=== PATIENT | male | born 1960 | race Two or more races ===

== ENCOUNTER 2018-12-17 14:45 | Inpatient (IN) | payer MEDICARE, OTHER ==
[~2018-12-17] VITALS: Ht 167.6 cm; Wt 127.0 kg
--- NOTE | 2018-12-17 14:58 | Emergency Room Report ---
History of Present Illness General Chief Complaint: Edema Source: Patient, EMS Present Illness HPI Patient is a 58-year-old male presented after increased difficulty with lower extremity swelling. Patient had been noted to have increased swelling to both legs. He had recently been started on diuretics. Patient was noted to have swelling up to his thighs. Patient denies any prior history of renal disease or heart failure. He reports having taking water pill this morning. Patient was brought in by [facility].Reports having long-standing swelling which has worsened.Patient denies any fever. Allergies: Coded Allergies: No Known Allergies (Unverified , 12/17/18) Patient History Past Medical History: see triage record Reviewed Nursing Documentation: PMH: Agreed; PSxH: Agreed Nursing Documentation-PMH Past Medical History: No History, Except For Hx Cardiac Problems: No - OSTEOARTHRITIS, OBESITY Review of Systems All Other Systems: negative except mentioned in HPI Physical Exam Vital Signs Date Time Temp Pulse Resp B/P (MAP) Pulse Ox O2 Delivery O2 Flow Rate FiO2 12/17/18 14:42 97.5 94 22 132/70 95 Room Air Sp02 EP Interpretation: reviewed, normal General Appearance: normal inspection, well appearing, no apparent distress, alert, obese Head: atraumatic ENT: normal ENT inspection, hearing grossly normal, normal voice Neck: normal inspection, full range of motion, supple, no bony tend Respiratory: normal inspection, lungs clear, no respiratory distress, no retraction, wheezing Cardiovascular #1: regular rate, rhythm, edema - 4+ Gastrointestinal: normal inspection, normal bowel sounds, non tender, soft, no guarding, no hernia Genitourinary: no CVA tenderness Musculoskeletal: normal inspection, back normal, normal range of motion Neurologic: normal inspection, alert, oriented x3, responsive, speech normal Psychiatric: normal inspection, judgement/insight normal, mood/affect normal Skin: normal inspection, normal color, no rash Medical Decision Making Diagnostic Impression: Primary Impression: Bilateral edema of lower extremity ER Course Patient presented for lower extremity swelling. Differential diagnosis includes is not limited to allergic reaction, deep venous thrombosis, congestive heart failure, cirrhosis among others. Because of complexity of patient's case laboratory testing and imaging studies were ordered. Patient is noted to have lower extremity edema. He was noted to have very prominent edema. He does not appear to have any pulmonary symptoms. EKG interpreted by me showed normal sinus rhythm without acute ST or T wave changes. Bilateral lower extremity ultrasound showed no evidence of deep venous thrombosis.Dr. Denilson Rivera was contacted for inpatient management due to primary care physician. Labs Test 12/17/18 15:15 White Blood Count 7.4 K/UL (4.8-10.8) Red Blood Count 4.51 M/UL (4.70-6.10) Hemoglobin 11.5 G/DL (14.2-18.0) Hematocrit 35.7 % (42.0-52.0) Mean Corpuscular Volume 79 FL (80-99) Mean Corpuscular Hemoglobin 25.6 PG (27.0-31.0) Mean Corpuscular Hemoglobin Concent 32.3 G/DL (32.0-36.0) Red Cell Distribution Width 15.9 % (11.6-14.8) Platelet Count 265 K/UL (150-450) Mean Platelet Volume 7.2 FL (6.5-10.1) Neutrophils (%) (Auto) 61.6 % (45.0-75.0) Lymphocytes (%) (Auto) 23.1 % (20.0-45.0) Monocytes (%) (Auto) 11.5 % (1.0-10.0) Eosinophils (%) (Auto) 3.1 % (0.0-3.0) Basophils (%) (Auto) 0.7 % (0.0-2.0) Prothrombin Time 10.9 SEC (9.30-11.50) Prothromb Time International Ratio 1.0 (0.9-1.1) Activated Partial Thromboplast Time 29 SEC (23-33) D-Dimer 0.80 mg/L FEU (0.00-0.49) Urine Color Pale yellow Urine Appearance Clear Urine pH 8 (4.5-8.0) Urine Specific [place] 1.010 (1.005-1.035) Urine Protein Negative (NEGATIVE) Urine Glucose (UA) Negative (NEGATIVE) Urine Ketones Negative (NEGATIVE) Urine Blood 1+ (NEGATIVE) Urine Nitrite Negative (NEGATIVE) Urine Bilirubin Negative (NEGATIVE) Urine Urobilinogen Normal MG/DL (0.0-1.0) Urine Leukocyte Esterase Negative (NEGATIVE) Urine RBC 2-4 /HPF (0 - 0) Urine WBC 0-2 /HPF (0 - 0) Urine Squamous Epithelial Cells None /LPF (NONE/OCC) Urine Bacteria Few /HPF (NONE) Sodium Level 142 MMOL/L (136-145) Potassium Level 3.7 MMOL/L (3.5-5.1) Chloride Level 106 MMOL/L (98-107) Carbon Dioxide Level 28 MMOL/L (21-32) Anion Gap 8 mmol/L (5-15) Blood Urea Nitrogen 17 mg/dL (7-18) Creatinine 0.7 MG/DL (0.55-1.30) Estimat Glomerular Filtration Rate > 60 mL/min (>60) Glucose Level 111 MG/DL (74-106) Calcium Level 9.1 MG/DL (8.5-10.1) Total Bilirubin 1.1 MG/DL (0.2-1.0) Direct Bilirubin 0.2 MG/DL (0.0-0.3) Aspartate Amino Transf (AST/SGOT) 22 U/L (15-37) Alanine Aminotransferase (ALT/SGPT) 42 U/L (12-78) Alkaline Phosphatase 63 U/L (46-116) Total Creatine Kinase 307 U/L (26-308) C-Reactive Protein, Quantitative 0.5 mg/dL (0.00-0.90) Pro-B-Type Natriuretic Peptide 46 pg/mL (0-125) Total Protein 7.5 G/DL (6.4-8.2) Albumin 3.6 G/DL (3.4-5.0) Globulin 3.9 g/dL Albumin/Globulin Ratio 0.9 (1.0-2.7) Lipase 130 U/L (73-393) Last Vital Signs Date Time Temp Pulse Resp B/P (MAP) Pulse Ox O2 Delivery O2 Flow Rate FiO2 12/17/18 14:42 97.5 94 22 132/70 95 Room Air Status: improved Disposition: ADMITTED INPATIENT Condition: Stable Galileo Strong MD Dec 17, 2018 14:58
--- NOTE | 2018-12-17 15:19 | NUR ---
ED Nurse Note: Pt BIBDom from [facility] due to bilateral lower extremities edema x 2 days. Pt states that he has had this x 1 year but it has gotten worse the past couple days. A + O x4. Ambulatory. Skin warm to touch. Pt denies pain. Noted to have bilateral +2 pitting edema on the lower extremities.
[2018-12-17 15:22] VITALS: BP 115/55
[2018-12-17 15:25] LABS: APPEARANCE,URINE CLEAR; BILIRUBIN, URINE NEGATIVE (NEGATIVE); COLOR,URINE PALE YELLOW; GLUCOSE, URINE (UA) NEGATIVE (NEGATIVE); KETONES,URINE NEGATIVE (NEGATIVE); LEUKOCYTE ESTERASE ,URINE NEGATIVE (NEGATIVE); NITRITE,URINE NEGATIVE (NEGATIVE); PH,URINE 8 (4.5-8.0); PROTEIN,URINE NEGATIVE (NEGATIVE); UROBILINOGEN,URINE NORMAL MG/DL (0.0-1.0)
[2018-12-17 15:32] LABS: BASOPHILS % (AUTO) 0.7 % (0.0-2.0); EOSINOPHILS % (AUTO) 3.1 % (0.0-3.0); HEMATOCRIT 35.7 % (42.0-52.0); HEMOGLOBIN 11.5 G/DL (14.2-18.0); LYMPHOCYTES % (AUTO) 23.1 % (20.0-45.0); MEAN CORPUSCULAR VOLUME 79 FL (80-99); MONOCYTES % (AUTO) 11.5 % (1.0-10.0); NEUTROPHILS % (AUTO) 61.6 % (45.0-75.0); PLATELET COUNT 265 K/UL (150-450); RED BLOOD COUNT 4.51 M/UL (4.70-6.10); RED CELL DISTRIBUTION WIDTH 15.9 % (11.6-14.8); WHITE BLOOD COUNT 7.4 K/UL (4.8-10.8)
[2018-12-17 15:38] LABS: ANION GAP 8 mmol/L (5-15); BLOOD UREA NITROGEN 17 mg/dL (7-18); CALCIUM 9.1 MG/DL (8.5-10.1); CARBON DIOXIDE 28 MMOL/L (21-32); CHLORIDE 106 MMOL/L (98-107); CREATININE 0.7 MG/DL (0.55-1.30); POTASSIUM 3.7 MMOL/L (3.5-5.1); SODIUM 142 MMOL/L (136-145)
[2018-12-17 15:49] LABS: ALANINE AMINOTRANSFERASE 42 U/L (12-78); ALBUMIN 3.6 G/DL (3.4-5.0); ALBUMIN/GLOBULIN RATIO 0.9 (1.0-2.7); ALKALINE PHOSPHATASE 63 U/L (46-116); ASPARTATE AMINO TRANSFERASE 22 U/L (15-37); BILIRUBIN,TOTAL 1.1 MG/DL (0.2-1.0); CREATINE KINASE 307 U/L (26-308)
[2018-12-17 15:55] LABS: BILIRUBIN,DIRECT 0.2 MG/DL (0.0-0.3)
[2018-12-17 16:48] VITALS: BP 129/64
--- NOTE | 2018-12-17 18:29 | NUR ---
ED Nurse Note: US AT THE BEDSIDE.
--- NOTE | 2018-12-17 19:17 | NUR ---
HAND-OFF: Report given to SARAH Sheppard.
--- NOTE | 2018-12-17 19:18 | NUR ---
ED Nurse Note: Received report from Leilani/SARAH. Pt is A/O X 4. Waitng for bed to transfer.
[2018-12-17] MEDS ORDERED: OXYBUTYNIN CHLO15 MG PO (19:56)
[2018-12-17] MEDS ORDERED: MELOXICAM15 MG PO (19:56)
[2018-12-17] MEDS ORDERED: AMLODIPINE BESY10 MG ORAL (19:56)
[2018-12-17] MEDS ORDERED: ATORVASTATIN CA40 MG ORAL (19:56)
[2018-12-17] MEDS ORDERED: CARVEDILOL6.25 MG ORAL (19:56)
[2018-12-17] MEDS ORDERED: GABAPENTIN300 MG ORAL (19:56)
[2018-12-17] MEDS ORDERED: BENAZEPRIL HCL10 MG ORAL (19:56)
[2018-12-17] MEDS ORDERED: ASPIRIN81 MG ORAL (19:56)
[2018-12-17 20:15] VITALS: BP 132/70
--- NOTE | 2018-12-17 20:15 | NUR ---
NURSE NOTES: Received pt from [facility] via [facility], pt is AOX4, c/o bilateral lower extremity pain, pt is incontinent or urine kept pt clean and dry. IV R AC #20 patent and intact. Will admit pt to floor. No distress noted. Bed in lowest position and locked, side rails up x 2, call light within reach. Will continue to monitor.
--- NOTE | 2018-12-17 20:15 | NUR ---
TRANSFER TO FLOOR: Patient transferred to M/S 320 as ordered. Report given to Lukas/SARAH. Belongings sent with Pt , and rechecked with RN. Pt has smith in safety box. Endorsed to RN.
--- NOTE | 2018-12-17 20:45 | NUR ---
NURSE NOTES: Paged Dr. Echeverria for admission orders. Awaiting for call back.
--- NOTE | 2018-12-17 21:10 | NUR ---
NURSE NOTES: Dr. Echeverria called back, admission orders obtained and carried out.
[2018-12-17] MEDS: Hydromorphone 0.5mg/0.5ml inj IVP PRN (22:13)
[2018-12-18] VITALS: BP 132/89
[2018-12-18 04:00] VITALS: BP 121/82
[2018-12-18 06:30] LABS: BASOPHILS % (AUTO) 0.8 % (0.0-2.0); EOSINOPHILS % (AUTO) 3.4 % (0.0-3.0); HEMATOCRIT 33.2 % (42.0-52.0); HEMOGLOBIN 10.7 G/DL (14.2-18.0); LYMPHOCYTES % (AUTO) 33.8 % (20.0-45.0); MEAN CORPUSCULAR VOLUME 79 FL (80-99); MONOCYTES % (AUTO) 10.7 % (1.0-10.0); NEUTROPHILS % (AUTO) 51.3 % (45.0-75.0); PLATELET COUNT 247 K/UL (150-450); RED BLOOD COUNT 4.19 M/UL (4.70-6.10); RED CELL DISTRIBUTION WIDTH 16.2 % (11.6-14.8); WHITE BLOOD COUNT 6.3 K/UL (4.8-10.8)
[2018-12-18 07:07] LABS: ANION GAP 7 mmol/L (5-15); BLOOD UREA NITROGEN 16 mg/dL (7-18); CALCIUM 8.9 MG/DL (8.5-10.1); CARBON DIOXIDE 28 MMOL/L (21-32); CHLORIDE 106 MMOL/L (98-107); CREATININE 0.8 MG/DL (0.55-1.30); POTASSIUM 3.8 MMOL/L (3.5-5.1); SODIUM 141 MMOL/L (136-145)
--- NOTE | 2018-12-18 07:28 | NUR ---
HAND-OFF: Report given to SARAH Min. Pt in stable condition.
--- NOTE | 2018-12-18 07:30 | NUR ---
NURSE NOTES: Patient is in bed awake and able to verbalize needs. Stable with no s/s acute distress. Patient is in good spirits. Complains of 8/10 pain in bilateral lower extremities, will administer medication as ordered. Edema noted on bilateral lower extremities, skin clean, dry, and intact. Patient comfortable in bed with call light within reach. Will continue to monitor.
[2018-12-18] MEDS: Hydromorphone 0.5mg/0.5ml inj IVP PRN ×4 (07:47→22:41)
[2018-12-18 08:00] VITALS: BP 117/67
--- NOTE | 2018-12-18 08:46 | Diagnostic Imaging Report ---
Indication: Bilateral leg pain Technique: Grayscale and duplex images of the bilateral lower extremity deep veins Comparison: none Findings: Grayscale and duplex images demonstrate no evidence of intraluminal thrombus. Normal phasic Doppler waveforms demonstrating normal augmentation response, no evidence of valvular insufficiency. Normal compressibility of all deep veins. Patent downstream greater saphenous veins bilaterally. Impression: Negative for lower extremity deep venous thrombosis bilaterally
[2018-12-18] MEDS ORDERED: Oxybutynin 5mg tab ORAL SCH (09:00)
--- NOTE | 2018-12-18 09:00 | NUR ---
NURSE NOTES: Paged Dr. Echeverria regarding DVT prophylaxis order, awaiting response.
[2018-12-18] MEDS: Meloxicam 15 MG TAB ORAL SCH (09:21)
[2018-12-18] MEDS: Oxybutynin 5mg tab ORAL SCH ×3 (09:22→17:47)
[2018-12-18] MEDS: Benazepril 10mg tab ORAL SCH (09:22)
[2018-12-18] MEDS: Aspirin Baby 81mg ORAL SCH (09:22)
[2018-12-18 12:00] VITALS: BP 136/69
--- NOTE | 2018-12-18 14:36 | NUR ---
CASE MANAGEMENT:REVIEW 58 YR OLD MALE BIBA FROM [facility] IN [facility] CC: EDEMA X2 DAYS SI: BLE EDEMA 97.6 94 22 132/70 95% ON RA GLUCOSE+111 IS: IV LASIX : TO MED/SURG UNIT IS: IV DILAUDID Q4HRS PRN DITROPAN PO TID MOBIC PO QD NEURONTIN PO QD LOTENSIN PO QD ASA PO QD NORVASC PO QD Addendum: 12/18/18 at 1453 by NEHAL DO LVN LVN PLAN: 2DECHO VENOUS DUPLEX
--- NOTE | 2018-12-18 15:10 | NUR ---
DISCHARGE PLANNING PRIVATE CLIENT ADVISOR DISCUSSED DISCHARGE PLAN WITH DR NEWTON POSSIBLE DISCHARGE TODAY PATIENT IS FROM [facility]...DISCUSSED WITH CHARGE NURSECRISTHIAN
--- NOTE | 2018-12-18 15:44 | Cardiology Report ---
APPROVED REPORT EXAM: Two-dimensional and M-mode echocardiogram with Doppler and color Doppler. INDICATION ESSENTIAL HYPERTENSION M-Mode DIMENSIONS IVSd1.2 (0.7-1.1cm)Left Atrium (MM)4.1 (1.6-4.0cm) LVDd4.1 (3.5-5.6cm)Aortic Root3.1 (2.0-3.7cm) PWd1.2 (0.7-1.1cm)Aortic Cusp Exc.1.7 (1.5-2.0cm) IVSs1.8 cm LVDs2.7 (2.5-4.0cm) PWs1.4 cm Normal left ventricular chamber size, systolic function and wall motion. Left ventricular ejection fraction estimated to be 55-60%. No evidence of left ventricular hypertrophy. No evidence of pericardial effusion. Mild left atrial enlargement . Right cardiac chamber sizes are within normal limits. Mild aortic valve sclerosis with adequate cusp excursion. Mildly thickened mitral valve leaflets with normal excursion. Mild mitral annulus and aortic root calcification. Pulmonic valve not well visualized. IVC at normal size with physiologic collapse . A color flow and spectral Doppler study was performed and revealed: No aortic regurgitation. Normal left ventricular diastolic function . Trace mitral regurgitation. Trace tricuspid regurgitation. Tricuspid systolic velocities suggests peak right ventricular systolic pressure of 21 mmHg.
--- NOTE | 2018-12-18 15:53 | Cardiology Report ---
APPROVED REPORT EKG Measurement Heart [id number] Normal sinus rhythm Normal ECG
[2018-12-18 16:00] VITALS: BP 122/63
--- NOTE | 2018-12-18 19:03 | History and Physical ---
History of Present Illness General Date patient seen: Dec 18, 2018 Reason for Hospitalization: Edema Present Illness HPI 58 y/o AA male admitted from [facility] after several days of increasing edema up to thighs. Pt. c/o pain, never had this before. On w/u echo has nl ef, us of legs negative for dvt. pt. noted to have anemia, UA no proteinuria. c/o weakness, pain, and gait d/o resulting from the swelling. Allergies: Coded Allergies: No Known Allergies (Unverified , 12/17/18) Medication History Scheduled Amlodipine Besylate* (Amlodipine Besylate*), 10 MG ORAL DAILY, (Reported) Aspirin* (Aspirin*), 81 MG ORAL DAILY, (Reported) Atorvastatin Calcium* (Atorvastatin Calcium*), 40 MG ORAL DAILY, (Reported) Benazepril Hcl* (Benazepril Hcl*), 10 MG ORAL DAILY, (Reported) Carvedilol* (Carvedilol*), 6.25 MG ORAL EVERY 12 HOURS, (Reported) Gabapentin* (Gabapentin*), 300 MG ORAL DAILY, (Reported) Meloxicam* (Meloxicam*), 15 MG PO DAILY, (Reported) Oxybutynin Chloride (Oxybutynin Chloride Er), 15 MG PO DAILY, (Reported) Patient History History Provided By: Patient Healthcare decision maker Resuscitation status Full Code Advanced Directive on File No Review of Systems Constitutional: Reports: malaise, weakness Eye: Denies: no symptoms, see HPI, eye pain, blurred vision, tearing, double vision, nose pain, nose congestion, acuity changes, discharge, other ENT: Denies: no symptoms, see HPI, ear pain, ear discharge, nose pain, nose congestion, throat pain, throat swelling, mouth pain, hearing loss, nasal discharge, other Respiratory: Denies: no symptoms, see HPI, cough, orthopnea, shortness of breath, stridor, wheezing, CHAUDHARI, sputum, other Cardiovascular: Denies: no symptoms, see HPI, chest pain, edema, palpitations, syncope, PND, other Gastrointestinal: Denies: no symptoms, see HPI, abdominal pain, constipation, diarrhea, nausea, vomiting, melena, hematemesis, other Genitourinary: Reports: frequency, incontinence; Denies: no symptoms, see HPI, discharge, dysuria, hematuria, pain, retention, urgency, vag bleed/dc, other Musculoskeletal: Reports: joint pain Skin: Denies: no symptoms, see HPI, rash, change in color, change in hair/nails , dryness, lesions, other Psychiatric: Denies: no symptoms, see HPI, prior hx, anxiety, depressed feelings, emotional problems, SI, HI, hallucinations, other Neurological: Denies: no symptoms, see HPI, headache, numbness, paresthesia, seizure, tingling, tremors, focal weakness, syncope, dizziness, other Endocrine: Denies: no symptoms, see HPI, excessive sweating, flushing, intolerance to temperature, increased thirst, increased urine, unexplained weight loss, other Hematologic/Lymphatic: Denies: no symptoms, see HPI, anemia, blood clots, easy bleeding, easy bruising, swollen glands, diathesis, other Physical Exam General Appearance: WD/WN, no apparent distress, obese HEENT: normocephalic, atraumatic, anicteric, mucous membranes moist, PERRL Neck: non-tender, normal alignment, supple Respiratory/Chest: chest wall non-tender, lungs clear Cardiovascular/Chest: normal peripheral pulses Abdomen: non tender Genitourinary/Rectal: normal genital exam Extremities: normal range of motion, normal capillary refill, non-pitting Skin Exam: warm/dry 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, no motor/sensory deficits, alert, oriented x 3, no Babinski Last 24 Hour Vital Signs Date Time Temp Pulse Resp B/P (MAP) Pulse Ox O2 Delivery O2 Flow Rate FiO2 12/18/18 16:00 98.3 80 18 122/63 (82) 96 12/18/18 12:00 98.6 85 18 136/69 (91) 95 12/18/18 09:22 117/67 12/18/18 09:22 85 117/67 12/18/18 09:00 Room Air 12/18/18 08:00 98.3 85 18 117/67 (84) 96 12/18/18 04:00 97.9 63 17 121/82 (95) 99 12/18/18 00:00 99.0 82 18 132/89 (103) 98 12/17/18 20:21 Room Air 12/17/18 20:15 97.8 91 20 132/70 (90) 97 12/17/18 20:15 97.8 87 20 131/72 97 Room Air 100 Intake and Output 12/17/18 12/18/18 19:00 07:00 Intake Total 340 ml Output Total 900 ml Balance -560 ml Intake Oral 340 ml Output Urine Total 900 ml Laboratory Tests Test 12/18/18 05:00 White Blood Count 6.3 K/UL (4.8-10.8) Red Blood Count 4.19 M/UL (4.70-6.10) L Hemoglobin 10.7 G/DL (14.2-18.0) L Hematocrit 33.2 % (42.0-52.0) L Mean Corpuscular Volume 79 FL (80-99) L Mean Corpuscular Hemoglobin 25.5 PG (27.0-31.0) L Mean Corpuscular Hemoglobin Concent 32.1 G/DL (32.0-36.0) Red Cell Distribution Width 16.2 % (11.6-14.8) H Platelet Count 247 K/UL (150-450) Mean Platelet Volume 6.5 FL (6.5-10.1) Neutrophils (%) (Auto) 51.3 % (45.0-75.0) Lymphocytes (%) (Auto) 33.8 % (20.0-45.0) Monocytes (%) (Auto) 10.7 % (1.0-10.0) H Eosinophils (%) (Auto) 3.4 % (0.0-3.0) H Basophils (%) (Auto) 0.8 % (0.0-2.0) Sodium Level 141 MMOL/L (136-145) Potassium Level 3.8 MMOL/L (3.5-5.1) Chloride Level 106 MMOL/L (98-107) Carbon Dioxide Level 28 MMOL/L (21-32) Anion Gap 7 mmol/L (5-15) Blood Urea Nitrogen 16 mg/dL (7-18) Creatinine 0.8 MG/DL (0.55-1.30) Estimat Glomerular Filtration Rate > 60 mL/min (>60) Glucose Level 120 MG/DL (74-106) H Calcium Level 8.9 MG/DL (8.5-10.1) Thyroid Stimulating Hormone (TSH) 1.470 uiU/mL (0.358-3.740) Height (Feet): 5 Height (Inches): 6.00 Weight (Pounds): 280 Medications Current Medications Medications (Trade) Dose Ordered Sig/Faheem Route PRN Reason Start Time Stop Time Status Last Admin Dose Admin Amlodipine Besylate (Norvasc) 10 mg DAILY ORAL 12/18/18 09:00 01/17/19 08:59 12/18/18 09:22 Aspirin (ASA) 81 mg DAILY ORAL 12/18/18 09:00 01/17/19 08:59 12/18/18 09:22 Atorvastatin Calcium (Lipitor) 40 mg BEDTIME ORAL 12/18/18 21:00 01/17/19 20:59 Benazepril HCl (Lotensin) 10 mg DAILY ORAL 12/18/18 09:00 01/17/19 08:59 12/18/18 09:22 Gabapentin (Neurontin) 300 mg DAILY ORAL 12/18/18 09:00 01/17/19 08:59 12/18/18 09:22 Hydromorphone HCl (Dilaudid) 0.5 mg Q4H PRN IVP For Pain 12/17/18 21:15 12/24/18 21:14 12/18/18 17:51 Meloxicam (Mobic) 15 mg DAILY ORAL 12/18/18 09:00 01/17/19 08:59 12/18/18 09:21 Oxybutynin Chloride (Ditropan) 5 mg TID ORAL 12/18/18 09:00 01/17/19 08:59 12/18/18 17:47 Assessment/Plan Problem List: (1) Osteoarthritis Assessment & Plan: - on cpx2 inhibitor, may cause some swelling ICD Codes: M19.90 - Unspecified osteoarthritis, unspecified site SNOMED: 022711764 (2) Anemia Assessment & Plan: - need to r/o paraprotenemia given edema ICD Codes: D64.9 - Anemia, unspecified SNOMED: 148455455 (3) HTN (hypertension) Assessment & Plan: - change amlosipine given may cause edema -add hctz to help with edema -will give lasix x 1 ICD Codes: I10 - Essential (primary) hypertension SNOMED: 38827987 (4) Bilateral edema of lower extremity Assessment & Plan: - no dvt -nl echo -add diuresis, change amlodipine -has weakness , gait d/o, will ask pt to eval ICD Codes: R60.0 - Localized edema SNOMED: 16960792, 97039161, 115981718 Status: Denilson James M.D. Dec 18, 2018 19:03
--- NOTE | 2018-12-18 19:53 | NUR ---
HAND-OFF: Report given to Fran RN. Patient is stable.
[2018-12-18 20:00] VITALS: BP 123/62
[2018-12-18] MEDS: Atorvastatin 20mg tab ORAL SCH (20:35)
--- NOTE | 2018-12-18 21:30 | NUR ---
NURSE NOTES: Pt is in bed, awake and alert. No acute distress noted. Pt reports pain 8/10. Pain medication will be given as ordered PRN. Bed low in position,side rails up and call light within reach. Pt is instructed to call for assistance before getting out of bed.
[2018-12-19] VITALS: BP 130/65
--- NOTE | 2018-12-19 01:13 | NUR ---
NURSE NOTES: Pt is in bed, awake and a
[2018-12-19] MEDS: Hydromorphone 0.5mg/0.5ml inj IVP PRN ×4 (02:49→22:03)
[2018-12-19 04:00] VITALS: BP 126/71
--- NOTE | 2018-12-19 07:20 | NUR ---
HAND-OFF: Report given to SARAH Vasquez.
[2018-12-19 08:00] VITALS: BP 131/69
--- NOTE | 2018-12-19 08:17 | NUR ---
NURSE NOTES: Pt is in bed able to verbalize known needs. Call light is in reach
[2018-12-19 09:11] LABS: ANION GAP 10 mmol/L (5-15); BLOOD UREA NITROGEN 14 mg/dL (7-18); CALCIUM 8.6 MG/DL (8.5-10.1); CARBON DIOXIDE 25 MMOL/L (21-32); CHLORIDE 103 MMOL/L (98-107); CREATININE 0.7 MG/DL (0.55-1.30); PHOSPHORUS 4.1 MG/DL (2.5-4.9); POTASSIUM 4.1 MMOL/L (3.5-5.1); SODIUM 138 MMOL/L (136-145)
[2018-12-19] MEDS: Oxybutynin 5mg tab ORAL SCH ×3 (10:01→17:54)
[2018-12-19] MEDS: Aspirin Baby 81mg ORAL SCH (10:02)
[2018-12-19] MEDS: Meloxicam 15 MG TAB ORAL SCH (10:02)
[2018-12-19] MEDS: Benazepril 10mg tab ORAL SCH (10:03)
--- NOTE | 2018-12-19 13:25 | NUR ---
REHAB MED PT NOTE CONSULT RECEIVED, BAIRON COMPLTED, PATIENT WILL BENFIT FROM SKILLED PT DURING STAY FOR [facility]URN TO [facility]. RECOMMEND SNF AT [facility]. PLAN OF CARE INITIATED. TUCKER GERBER PT DPT Addendum: 12/19/18 at 1326 by TUCKER GERBER PT Amended: Links added.
[2018-12-19 16:00] VITALS: BP 125/68
--- NOTE | 2018-12-19 16:46 | Nephrology Progress Note ---
Assessment/Plan Problem List: (1) Osteoarthritis Assessment & Plan: - on cpx2 inhibitor, may cause some swelling ICD Codes: M19.90 - Unspecified osteoarthritis, unspecified site SNOMED: 353550347 (2) Anemia Assessment & Plan: - need to r/o paraproteinemia given edema. -await spep ICD Codes: D64.9 - Anemia, unspecified SNOMED: 082165468 (3) HTN (hypertension) Assessment & Plan: - change amlosipine given may cause edema -add hctz to help with edema -will give lasix x 1 ICD Codes: I10 - Essential (primary) hypertension SNOMED: 63543536 (4) Bilateral edema of lower extremity Assessment & Plan: - no dvt -nl echo -add diuresis, change amlodipine -has weakness , gait d/o, will ask pt to eval ICD Codes: R60.0 - Localized edema SNOMED: 52639759, 69415532, 902839841 Status: stable Subjective Date patient seen: Dec 19, 2018 ROS Limited/Unobtainable: No Constitutional: Reports: weakness HEENT: Denies: no symptoms, eye pain, blurred vision, tearing, double vision, ear pain, ear discharge, nose pain, nose congestion, throat pain, throat swelling, mouth pain, mouth swelling, other Cardiovascular: Denies: no symptoms, chest pain, edema, irregular heart rate, lightheadedness, palpitations, syncope, other Respiratory: Denies: no symptoms, cough, orthopnea, shortness of breath, SOB with excertion, SOB at rest, sputum, stridor, wheezing, other Gastrointestinal/Abdominal: Denies: no symptoms, abdomen distended, abdominal pain, black stools, tarry stools, blood in stool, constipated, diarrhea, difficulty swallowing, nausea, poor appetite, poor fluid intake, rectal bleeding , vomiting, other Neurologic/Psychiatric: Denies: no symptoms, anxiety, depressed, emotional problems, headache, numbness, paresthesia, pre-existing deficit, seizure, tingling, tremors, weakness, other Endocrine: Denies: no symptoms, excessive sweating, flushing, intolerance to cold, intolerance to heat, increased hunger, increased thirst, increased urine, unexplained weight gain, unexplained weight loss, other Allergies: Coded Allergies: No Known Allergies (Unverified , 12/17/18) Subjective pt. seen and examined good uop after diuresis still with pain on ambulation Objective Last 24 Hour Vital Signs Date Time Temp Pulse Resp B/P (MAP) Pulse Ox O2 Delivery O2 Flow Rate FiO2 12/19/18 10:03 131/69 12/19/18 09:00 Room Air 12/19/18 08:00 98.3 85 16 131/69 (89) 95 12/19/18 07:47 97.3 12/19/18 04:00 97.3 91 18 126/71 (89) 97 12/19/18 00:00 99.5 84 18 130/65 (86) 97 12/18/18 21:00 Room Air 12/18/18 20:00 98.0 86 18 123/62 (82) 97 Intake and Output 12/18/18 12/19/18 19:00 07:00 Intake Total 1080 ml 700 ml Output Total 500 ml 2200 ml Balance 580 ml -1500 ml Intake Oral 1080 ml 700 ml Output Urine Total 500 ml 2200 ml # Voids 4 Laboratory Tests 12/19/18 06:40: Sodium Level 138, Potassium Level 4.1, Chloride Level 103, Carbon Dioxide Level 25, Anion Gap 10, Blood Urea Nitrogen 14, Creatinine 0.7, Estimat Glomerular Filtration Rate > 60, Glucose Level 77, Calcium Level 8.6, Phosphorus Level 4.1 , Total Protein (PEP) [Pending], Albumin (PEP) [Pending], Globulin (PEP) [ Pending], Albumin/Globulin Ratio [Pending], Ixmdu-3-Swpmavowx [Pending], Alpha-2 -Globulins [Pending], Beta Globulins [Pending], Beta Gamma Globulin [Pending], PEP Abnormal Protein Bands [Pending], Protein Electrophoresis Interpret [Pending ] Height (Feet): 5 Height (Inches): 6.00 Weight (Pounds): 280 General Appearance: WD/WN, no apparent distress EENT: PERRL/EOMI, normal ENT inspection Neck: non-tender, supple Cardiovascular: normal peripheral pulses Respiratory/Chest: lungs clear, normal breath sounds Abdomen: normal bowel sounds, soft Pelvis: normal external exam Genitourinary/Rectal: normal genital exam Extremities: normal range of motion Edema: severe edema 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 Dec 19, 2018 16:45
--- NOTE | 2018-12-19 19:30 | NUR ---
NURSE NOTES: Received patient in no apparent distress. A&OX4. IV site patent and intact. Bed in lowest position. Call light within reach. Will continue to monitor.
[2018-12-19 20:00] VITALS: BP 110/55
--- NOTE | 2018-12-19 20:35 | NUR ---
HAND-OFF: Report given to Aracelis SMITH.
--- NOTE | 2018-12-19 20:38 | NUR ---
NURSE NOTES: Pt required assistance with adls, is able to ambulate slowly with use of walker. Skin to lower extremities remain intact. Dr Ventura informed that pt is urinating, well. Lower extremities no longer pitting. Call light well in reach
[2018-12-19] MEDS: Atorvastatin 20mg tab ORAL SCH (20:49)
[2018-12-20] VITALS: BP 117/56
[2018-12-20] MEDS: Hydromorphone 0.5mg/0.5ml inj IVP PRN ×5 (02:03→23:03)
[2018-12-20 04:00] VITALS: BP 99/55
[2018-12-20 06:33] LABS: BASOPHILS % (AUTO) 0.7 % (0.0-2.0); EOSINOPHILS % (AUTO) 3.5 % (0.0-3.0); HEMATOCRIT 33.2 % (42.0-52.0); HEMOGLOBIN 10.9 G/DL (14.2-18.0); LYMPHOCYTES % (AUTO) 30.6 % (20.0-45.0); MEAN CORPUSCULAR VOLUME 78 FL (80-99); MONOCYTES % (AUTO) 13.5 % (1.0-10.0); NEUTROPHILS % (AUTO) 51.8 % (45.0-75.0); PLATELET COUNT 239 K/UL (150-450); RED BLOOD COUNT 4.27 M/UL (4.70-6.10); RED CELL DISTRIBUTION WIDTH 15.7 % (11.6-14.8); WHITE BLOOD COUNT 8.1 K/UL (4.8-10.8)
[2018-12-20 07:09] LABS: ANION GAP 6 mmol/L (5-15); BLOOD UREA NITROGEN 20 mg/dL (7-18); CALCIUM 9.1 MG/DL (8.5-10.1); CARBON DIOXIDE 31 MMOL/L (21-32); CHLORIDE 103 MMOL/L (98-107); CREATININE 0.8 MG/DL (0.55-1.30); POTASSIUM 3.8 MMOL/L (3.5-5.1); SODIUM 139 MMOL/L (136-145)
--- NOTE | 2018-12-20 07:17 | NUR ---
HAND-OFF: Report given to Christina SMITH.
--- NOTE | 2018-12-20 07:30 | NUR ---
NURSE NOTES: Pt is awake, per request asked for a wash cloth for complaints of eye discomfort. Current plan of care will be followed
[2018-12-20 08:00] VITALS: BP 125/65
[2018-12-20] MEDS: Oxybutynin 5mg tab ORAL SCH ×3 (09:03→17:59)
[2018-12-20] MEDS: Meloxicam 15 MG TAB ORAL SCH (09:04)
[2018-12-20] MEDS: Aspirin Baby 81mg ORAL SCH (09:04)
[2018-12-20] MEDS: Benazepril 10mg tab ORAL SCH (09:05)
[2018-12-20 12:00] VITALS: BP 114/64
--- NOTE | 2018-12-20 14:04 | NUR ---
RD ASSESSMENT & RECOMMENDATIONS SEE CARE ACTIVITY FOR COMPLETE ASSESSMENT DAILY ESTIMATED NEEDS: Needs based on Cardiac, obese 80kg adj 20-25 kcals/kg [id number] total kcals 1-1.2 g protein/kg 80-96 g total protein Fluid per MD NUTRITION DIAGNOSIS: Decreased sodium and fat needs r/t edema and BMI as evidenced by pt adm w/ BL LE edema, on diuretics, BMI is morbidly obese per guidelines, pt is 197% of [place] Body Weight. CURRENT DIET: Low Na PO DIET RECOMMENDATIONS: LOW NA / LOW FAT DIET ADDITIONAL RECOMMENDATIONS: 1) Obtain a standing weight as able 2) Monitor lytes daily w/ diuretics Add B-complex daily
[2018-12-20 16:00] VITALS: BP 115/70
--- NOTE | 2018-12-20 18:53 | NUR ---
NURSE NOTES: Pt up earlier in shift with Pt tolerated task well. Did require some help with repositioning 2 to large size and limited mobility while in bed, pt is able to turn, slowly. Complete linen change and grooming needs needed. Pain medication given times one. Pt complained pain 8/10 after recent administration, of Mobic pt qued on pain level. " Well i did not know you gave me routine pain medicine so I will wait to later," Current plan of care will be followed
[2018-12-20] MEDS ORDERED: Tubing IV Secondary IV ONE (19:06)
[2018-12-20 20:00] VITALS: BP 109/56
--- NOTE | 2018-12-20 20:35 | NUR ---
NURSE NOTES: Pt required redirection for self exposure penis exposed, gown up and sheet down. Meat Processor informed pt he was exposed, did not make attempts to cover up. Meat Processor required to cover pt up
--- NOTE | 2018-12-20 20:37 | NUR ---
HAND-OFF: Report given to Aracelis.
--- NOTE | 2018-12-20 20:38 | NUR ---
NURSE NOTES: Received patient in no apparent distress. A&OX4. IV site patent and intact. Bed in lowest position. Call light within reach. Will continue to monitor.
[2018-12-20] MEDS: Atorvastatin 20mg tab ORAL SCH (21:10)
[2018-12-21] VITALS: BP 107/56
[2018-12-21] MEDS: Hydromorphone 0.5mg/0.5ml inj IVP PRN ×5 (03:20→23:37)
[2018-12-21 04:00] VITALS: BP 112/56
--- NOTE | 2018-12-21 07:30 | NUR ---
HAND-OFF: Report given to Coleen Prasad RN.
--- NOTE | 2018-12-21 07:35 | NUR ---
NURSE NOTES: Received report from Benito Chris RN. Rounding done with outgoing nurse. Patient a/o x4 lying on the bed. c/o thigh pain 9/10 and dilaudid 0.5 mg will be given. No respiratory distress noted. Bilateral lower extremity is swollen. Bed in lowest position, call light within reach. Will continue to monitor.
[2018-12-21 08:00] VITALS: BP 122/63
[2018-12-21] MEDS: Meloxicam 15 MG TAB ORAL SCH (08:49)
[2018-12-21] MEDS: Benazepril 10mg tab ORAL SCH (08:49)
[2018-12-21] MEDS: Oxybutynin 5mg tab ORAL SCH ×3 (08:49→17:31)
[2018-12-21] MEDS: Aspirin Baby 81mg ORAL SCH (08:50)
[2018-12-21 12:00] VITALS: BP 122/64
[2018-12-21 16:00] VITALS: BP 124/60
--- NOTE | 2018-12-21 19:34 | NUR ---
NURSE NOTES:Patient received A/A/AOX4 . patient c/o thigh pain . pain rates 8 out of 10. Dilaudid 0.5 mg will be given in scheduled time . RACg#20 H/L Patent and intact . call light within reach . bed in low position at all times will continue to monitor.
--- NOTE | 2018-12-21 19:34 | NUR ---
HAND-OFF: Report given to Cally, LPN. Patient in stable condition.
[2018-12-21 20:00] VITALS: BP 115/67
[2018-12-21] MEDS: Atorvastatin 20mg tab ORAL SCH (21:14)
[2018-12-22] VITALS: BP 116/62
[2018-12-22] MEDS: Hydromorphone 0.5mg/0.5ml inj IVP PRN ×5 (03:46→21:17)
[2018-12-22 04:00] VITALS: BP 110/61
--- NOTE | 2018-12-22 07:30 | NUR ---
NURSE NOTES: Patient is in bed awake and able to verbalize needs. Stable with no s/s acute distress. Denies pain or SOB at this time. Patient is in good spirits. Patient is comfortable in bed with call light within reach. All needs met at this time. Will continue to monitor.
--- NOTE | 2018-12-22 07:33 | NUR ---
HAND-OFF: Report given to SUSAN Middleton patient in stable condition
[2018-12-22 08:48] VITALS: BP 125/65
[2018-12-22] MEDS: Benazepril 10mg tab ORAL SCH (09:24)
[2018-12-22] MEDS: Meloxicam 15 MG TAB ORAL SCH (09:24)
[2018-12-22] MEDS: Oxybutynin 5mg tab ORAL SCH ×3 (09:24→17:41)
[2018-12-22] MEDS: Aspirin Baby 81mg ORAL SCH (09:25)
[2018-12-22 12:00] VITALS: BP 106/63
[2018-12-22 16:00] VITALS: BP 114/65
--- NOTE | 2018-12-22 16:38 | NUR ---
CASE MANAGEMENT: REVIEW SI: OSTEOARTHRITIS . BILATERAL EDEMA OF LOWER EXTREMITY T 97.8 HR 71 RR 17 BP 125/65 SAT 96% ROOM AIR H/H 10.9/33.2 BUN 20 IS: K-DUR PO QD ASA PO QD MOBIC PO QD GABAPENTIN PO QD LIPITOR PO QHS MED/SURG STATUS DCP: PATIENT IS FROM [facility]
--- NOTE | 2018-12-22 16:46 | NUR ---
CASE MANAGEMENT: DCPNOTE PER MD ORDER CM ATTEMPTED TO REFEREE PATIENT TO [facility] [address] [facility] , [place] [address] / NO ANSWER X3
--- NOTE | 2018-12-22 19:30 | NUR ---
HAND-OFF: Report given to Cally GUTIERREZ. Patient is stable.
[2018-12-22 20:00] VITALS: BP 111/68
[2018-12-22] MEDS: Atorvastatin 20mg tab ORAL SCH (20:56)
[2018-12-23] VITALS: BP 115/67
[2018-12-23] MEDS: Hydromorphone 0.5mg/0.5ml inj IVP PRN ×4 (02:43→15:40)
[2018-12-23 04:00] VITALS: BP 120/67
--- NOTE | 2018-12-23 07:36 | NUR ---
HAND-OFF: Report given to AFTAB Richmond
--- NOTE | 2018-12-23 07:50 | NUR ---
NURSE NOTES: Received report from Cally GUTIERREZ. During rounds patient is awake alert and oriented, no acute distress noted. Reporting no pain. Patient's own walker at the bedside. Fall precautions maintained. Side rails upx3, bed low and locked, call light in reach. Patient educated to call for assistance before getting OOB, patient reports he will call. Will continue to monitor.
[2018-12-23 08:00] VITALS: BP 135/56
[2018-12-23] MEDS: Meloxicam 15 MG TAB ORAL SCH (08:45)
[2018-12-23] MEDS: Aspirin Baby 81mg ORAL SCH (08:45)
[2018-12-23] MEDS: Oxybutynin 5mg tab ORAL SCH ×3 (08:45→17:17)
[2018-12-23] MEDS: Benazepril 10mg tab ORAL SCH (08:45)
[2018-12-23 12:00] VITALS: BP 127/69
--- NOTE | 2018-12-23 14:06 | NUR ---
DISCHARGE PLANNING ORACLE SOA DEVELOPER FAXED CLINICALS TO: [facility] T: [phone] F: [phone] AWAIT ACCEPTANCE AND BED ASSIGNMENT
[2018-12-23] MEDS ORDERED: ATORVASTATIN CA40 MG ORAL (15:14)
[2018-12-23] MEDS ORDERED: HYDROCHLOROTHIA25 MG ORAL (15:15)
[2018-12-23] MEDS ORDERED: DITROPAN10 MG ORAL (15:17)
[2018-12-23] MEDS ORDERED: POTASSIUM CHLO20 ME1 ORAL ×2 (15:18→15:19)
--- NOTE | 2018-12-23 15:18 | NUR ---
DISCHARGE PLANNED RECEIVED ACCEPTANCE CALL FROM DAYNE @ [facility] PATIENT WILL DISCHARGE TO [facility] [address] [facility] [address] [place] [id number] T: [phone] FOR NURSE TO NURSE REPORT [facility] HAS BEEN ARRANGED FOR 1730 DONOR SUPPORT TECHNICIAN Addendum: 12/23/18 at 1521 by NEHAL DO LVN LVN SKILLED
--- NOTE | 2018-12-23 15:34 | NUR ---
NURSE NOTES: Called and gave report to SARAH Hagen at [facility].
[2018-12-23 16:00] VITALS: BP 139/82
--- NOTE | 2018-12-23 19:30 | NUR ---
NURSE NOTES:Patient received in bed SLIME pineda R.N.. denies any pain at this time . no s/s of distress noted RAC G#20 H/L Patent and intact . call light within reach . bed in low position at all times . will continue to monitor patient . Addendum: 12/23/18 at 2015 by SHARON MARTINS LVN Please disregards this note .incorrect patient .
--- NOTE | 2018-12-23 20:00 | NUR ---
NURSE NOTES: Patient discharged. Patient stable on discharge. Report given to [facility] ambulance crew and patient transferred safely to [facility]. All belongings reviewed with patient and patient reports all belongings are present. Valuables from safe given to patient and patient signed for in presence of security and nursing sheet manufacturing supervisor. IV removed intact. Patient taken off unit at 1954.
--- NOTE | 2018-12-25 09:27 | Discharge Summary ---
Discharge Summary Discharge Summary _ DATE OF ADMISSION: 12/17/2018 DATE OF DISCHARGE: 12/23/2018 DISCHARGED BY: Dr Echeverria REASON FOR ADMISSION: 58 years old male with past medical history of hypertension, osteoarthritis,, presented with increased bilateral lower extremity swelling. Patient recently started on diuretic. Patient reported weakness, pain and gait abnormality, resulting from the bilateral lower extremity swelling. Patient denied prior history of renal disease or heart failure. Upon evaluation vital signs were stable. Laboratory workup revealed no leukocytosis , hemoglobin 11.5, hematocrit 25.7 , stable coagulation profile. D-dimer 0.8. Urinalysis revealed no evidence of UTI. Stable electrolytes. BUN 17, creatinine 0.7. Glucose 111. Pro BNP 46. Stable LFT. CK 307. EKG revealed normal sinus rhythm, no acute ischemic changes. Venous duplex bilateral lower extremity revealed no evidence of acute DVT. Patient was admitted for further management HOSPITAL COURSE: Patient admitted to medical surgical floor. Echocardiogram revealed preserved ejection fraction of 55-60% with no evidence of left ventricular hypertrophy. No evidence of wall motion abnormality. Right ventricular systolic pressure of 21. Venous duplex bilateral lower extremity, as mentioned above, was negative for evidence of acute DVT. Patient received 1 dose of Lasix. Amlodipine,, which was used for management of hypertension was discontinued as a potential contributor to edema. Patient started on hydrochlorothiazide for management of blood pressure and help with edema. Renal parameters and electrolytes were closely monitored, electrolytes corrected as needed. Hemoglobin and hematocrit were closely monitored with goal to keep hemoglobin above 7. Hemoglobin and hematocrit remained at baseline, prior to discharge hemoglobin 10.9 ,hematocrit 23.2. Serum protein electrophoresis was unremarkable. Pain management was addressed . Patient was working with physical therapy. Fall precautions maintained. Patient required placement to [facility] for further rehabilitation. Placement was arranged at [facility] FINAL DIAGNOSES: Bilateral lower extremity edema. Osteoarthritis Anemia Hypertension DISCHARGE MEDICATIONS: See Medication Reconciliation list. DISCHARGE INSTRUCTIONS: Patient was discharged to the [facility] facility. Follow up with medical doctor at the facility. I have been assigned to dictate discharge summary for this account. I was not involved in the patient's management. Christelle Martin NP Dec 25, 2018 09:27
== END 2018-12-23 20:19 | DRG 948 ==
LOC: EDBD 14:45 → EMR 15:05 → 3E 16:42 → EDBEDREQSVC 17:39 → EDBEDREQ 17:39 → EDBEDREQSVC 18:51 → EDBEDREQ 19:06
DX: R60.0 Localized edema (principal); Z68.42 Body mass index [BMI] 45.0-49.9, adult; T50.995A Adverse effect of other drugs, medicaments and biological substances, initial encounter; M19.90 Unspecified osteoarthritis, unspecified site; I10 Essential (primary) hypertension; D64.9 Anemia, unspecified; E66.9 Obesity, unspecified
CPT/HCPCS: 36415; 80048; 80053; 81001; 82248; 82550; 83690; 83735; 83880; 84100; 84165; 84443; 85025; 85379; 85610; 85730; 86140; 87081; 93005; 93306; 93970; 96374; 99285; J8499